=== PATIENT | female | born 1995 | race Two or more races ===

== ENCOUNTER 2016-11-17 03:43 | Outpatient (CLI) | payer MEDICAID ==
[2016-11-17 04:43] LABS: APPEARANCE,URINE CLEAR; BILIRUBIN,URINE NEGATIVE (NEGATIVE); GLUCOSE, URINE NEGATIVE (NEGATIVE); KETONES,URINE NEGATIVE (NEGATIVE); LEUKOCYTE ESTERASE,URINE NEGATIVE (NEGATIVE); NITRITE,URINE NEGATIVE (NEGATIVE); PROTEIN,URINE NEGATIVE (NEGATIVE); URINE SPECIFIC GRAVITY 1.027; UROBILINOGEN,URINE NEGATIVE mg/dL (<2.0)
[2016-11-17 04:44] LABS: AMNISURE (ROM) NEGATIVE (NEGATIVE)
[2016-11-17 05:25] LABS: URINE BARBITURATES SCREEN NEGATIVE; URINE METHADONE SCREEN NEGATIVE; URINE OPIATES LOW NEGATIVE; URINE PHENCYCLIDINE SCREEN NEGATIVE
--- NOTE | 2016-11-17 10:45 | Antepartum Discharge Summary ---
Antepartum DC Datetime Report Generated by CPN: 11/17/2016 10:45 DIET/ACTIVITY/RESTRICTIONS Diet: Regular (11/17/2016 05:45:Loli Ledgerwood, RN) Activity: Normal Activity (11/17/2016 05:45:Loli Ledgerwood, RN) TEACHING/INSTRUCTIONS/REFERRALS Instructions Given To: pt (11/17/2016 05:45:Loli Adamaris, RN) Instructions Understood: Patient Verbalized Understanding (11/17/2016 05:45:Loli Bailon RN) Referrals: None (11/17/2016 05:45:Loli Bailon RN) Educational Materials- Other: Kick Counts Dehydration (11/17/2016 05:45:Loli Bailon RN) DISCHARGE INFORMATION Discharged AMA: No (11/17/2016 05:45:Loli Bailon RN) Physician Notified of Disch AMA: Dr Leggett (11/17/2016 05:45:Loli Bailon RN) Discharge Date/Time: 11/17/2016 05:52 (11/17/2016 05:45:Loli Bailon RN) Discharged To: Home (11/17/2016 05:45:Loli Bailon RN) Discharge Provider Name: Dr Leggett (11/17/2016 05:45:Loli Bailon RN) Accompanied By: Self (11/17/2016 05:45:Loli Bailon RN) Discharge Method: Ambulatory (11/17/2016 05:45:Loli Bailon RN) Condition: Stable (11/17/2016 05:45:Loli Bailon RN) FOLLOW UP INFORMATION Follow Up With: Mihn (11/17/2016 05:45:Loli Bailon RN) Follow Up On: As Scheduled (11/17/2016 05:45:Loli Bailon RN) Follow Up Phone Number: Minh (11/17/2016 05:45:Loli Bailon RN) Comments: [facility] (11/17/2016 05:45:Loli Bailon RN)
--- NOTE | 2016-11-17 10:45 | L&D Current Admission ---
Current Admit Datetime Report Generated by N: 11/17/2016 10:45 ADMISSION INFORMATION Chief Complaint: Suspected Rupture of Membranes (Annotations: On the question what brought pt in today, she replied that she was "screaming for [address] because I had an argument with some one and I wanted to kill myself". RN asked pt. if pt. still feels like she wants to kill herself, pt. did not respond and began to cry.) (11/17/2016 04:26:Loli Bailon RN)
--- NOTE | 2016-11-17 10:45 | L&D Flow Sheet ---
LD Flowsheet Datetime Report Generated by CPN: 11/17/2016 10:45 Datetime: 11/17/2016 05:20 Communication Comments: Dr Leggett at the bedside asking the pt. if it is safe for her to go home and if she still wants to hurt herself. Pt replied that she is safe at home and she will not hurt herself. D/C order received. (Loli Ledgerwood, RN) Datetime: 11/17/2016 05:14 Communication Comments: Dr Leggett at the bedise (Loli Ledgerwood, RN) Datetime: 11/17/2016 05:05 Uterine Activity Monitor Mode: External; Palpation (Loli Ledgerwood, RN) Frequency (min): none (Loli Ledgerwood, RN) Resting Tone (Palpate): Relaxed (Loli Ledgerwood, RN) Assessment A Monitor Mode: External US (Loli Ledgerwood, RN) FHR Baseline Rate : 145 (Loli Ledgerwood, RN) FHR Baseline Changes: No Baseline Change (Loli Ledgerwood, RN) Variability: Moderate 6-25 bpm (Loli Ledgerwood, RN) Accelerations: 15X15 (Loli Ledgerwood, RN) Decelerations: None (Loli Ledgerwood, RN) Patient Care Patient Care Comments: monitors off (Loli Ledgerwood, RN) Datetime: 11/17/2016 05:04 Teaching Instructional Method: Demo; Verbal; Patient Instructed (Loli Ledgerwood, RN) Related: Hydration; Activity and Rest (Loli Ledgermandi, RN) Teaching Comments: Kick Count, Dehydration. (Lolinay Salazarwood, RN) Datetime: 11/17/2016 04:55 NBP Sys/Queenie/Mean (mmHg): 98 (QS system process) : 53 (QS system process) : 71 (QS system process) Pulse: 92 (QS system process) LaborFlag: Labor (QS system process) Datetime: 11/17/2016 04:46 Communication Comments: Dr. Leggett notified of patient's presence and c/o. Also informed of negative amnisure. (Sharla Mireles, RN) Datetime: 11/17/2016 04:45 Uterine Activity Monitor Mode: External; Palpation (Loli Ledgerwood, RN) Frequency (min): none (Loli Ledgerwood, RN) Resting Tone (Palpate): Relaxed (Loli Ledgerwood, RN) Contraction Comments: no contractions noted during palpetion, pt. reports no contractions. (Loli Ledgerwood, RN) Assessment A Monitor Mode: External US (Loli Ledgerwood, RN) FHR Baseline Rate : 145 (Loli Ledgerwood, RN) FHR Baseline Changes: No Baseline Change (Loli Ledgerwood, RN) Variability: Moderate 6-25 bpm (Loli Ledgerwood, RN) Accelerations: 10X10 (Loli Ledgerwood, RN) Decelerations: None (Loli Ledgerwood, RN) Datetime: 11/17/2016 04:26 Pain Pain Scale: 2 (Loli Ledgerwood, RN) Pain Presence: Constant (Loli Ledgerwood, RN) Pain Location: Back (Loli Ledgerwood, ) Maternal Assessment Level of Consciousness: Fully Conscious (Loli Ledgerwood, RN) DTR's/Clonus: DTRs 2+; No Clonus (Loli Ledgerwood, RN) Headache: Denies (Loli Ledgerwood, RN) Breath Sounds, Left: Clear and Equal (Loli Ledgerwood, RN) Breath Sounds, Right: Clear and Equal (Loli Ledgerwood, RN) Nausea/Vomiting: Denies (Loli Ledgerwood, RN) RUQ Epigastric Pain: Denies (Loli Bailon RN) Teaching Instructional Method: Demo; Verbal; Patient Instructed (Loli Bailon RN) Plan of Care: Plan of Care Discussed (Loli Bailon RN) Unit Routine: [place] to Room; Call Ahmadi; Bed; Handwashing; Monitoring; Safety/Fall Risk Prevention (Loli Bailon RN) Communication Communication: Provider Orders Received (Loli Bailon RN) Communication Comments: Dr Leggett on the floor. Dr Leggett was notified about pt's compaints , labs and FHRs. Order received to provide a psychological evaluation for the pt. (Loli Bailon RN) LaborFlag: Labor (QS system process) Datetime: 11/17/2016 04:25 NBP Sys/Queenie/Mean (mmHg): 98 (QS system process) : 61 (QS system process) : 74 (QS system process) Pulse: 98 (QS system process) Respirations: 14 (Loli Bailon RN) Communication Communication: RN at Bedside (Annotations: On the question what brought pt in today, she replied that, "I was screaming for [address] because I had an argument with someone and I wanted to kill myself". RN asked pt. if pt. still feels like she wants to kill herself, pt. did not respond and began to cry.) (Loli Bailon RN) LaborFlag: Labor (QS system process) Datetime: 11/17/2016 04:05 Vital Signs Stage of : Labor (Loli Bailon, KING)
--- NOTE | 2016-11-17 10:45 | L&D Discharge Summary ---
OB Discharge Summary Datetime Report Generated by CPN: 11/17/2016 10:45 DISCHARGE DIAGNOSIS Diagnosis/Symptoms: False Labor Number of Babies in Womb: 1 Parity: 0 DIET/ACTIVITY/RESTRICTIONS Diet: Regular Activity: Normal Activity TEACHING/INSTRUCTIONS/REFERRALS Instructions Given To: pt Instructions Understood: Patient Verbalized Understanding Referrals: None Educational Materials- Other: Kick Counts Dehydration DISCHARGE INFORMATION Discharged AMA: No Physician Notified of Disch AMA: Dr Leggett Discharge Date/Time: 11/17/2016 05:52 Discharged To: Home Discharge Provider Name: Dr Leggett Accompanied By: Self Discharge Method: Ambulatory Condition: Stable FOLLOW UP INFORMATION Follow Up With: Other-Annotate Follow Up On: As Scheduled Follow Up Phone Number: Other-Annotate Comments: [facility]
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
--- NOTE | 2016-11-17 10:45 | L&D Admission Assessment ---
LD ADM ASMT Datetime Report Generated by CPN: 11/17/2016 10:45 PATIENT ASSESSMENT Assessment Type: Triage (11/17/2016 04:26:Loli Ledgerwood, RN) Assessment Type: Admission Assessment (11/17/2016 04:05:Loli Ledgerwood, RN) WEIGHT Weight (lb): 136 (11/17/2016 05:54:QS system process) Weight (kg): 61.8 (11/17/2016 05:54:QS system process) BMI: 26.6 (11/17/2016 05:54:QS system process) PAIN Pain Scale: 2 (11/17/2016 04:26:Loli Bailon RN) Pain Presence: Constant (11/17/2016 04:26:Loli Bailon RN) Pain Location: Back (11/17/2016 04:26:Loli Bailon RN) Pain Related to Contraction: No (11/17/2016 04:26:Loli Bailon RN) CONTRACTIONS Frequency (min): none (11/17/2016 05:05:Loli Bailon RN) Frequency (min): none (11/17/2016 04:45:Loli Bailon RN) Resting Tone [place]: Relaxed (11/17/2016 05:05:Loli Bailon RN) Resting Tone [place]: Relaxed (11/17/2016 04:45:Loli Bailon RN) Contraction Comments: no contractions noted during palpetion, pt. reports no contractions. (11/17/2016 04:45:Loli Ledgerwood, RN) NEURO Level of Consciousness: Fully Conscious (11/17/2016 04:26:Loli Adamaris, RN) DTR's/Clonus: DTRs 2+; No Clonus (11/17/2016 04:26:Lolinay Bailon, RN) Headache: Denies (11/17/2016 04:26:Loli Corrinagermandi, RN) Dizziness: No (11/17/2016 04:26:Lolinay Housergermandi, RN) Blurred Vision: No (11/17/2016 04:26:Loli Ledgerwood, RN) Extremity Numbness/Tingling : None (11/17/2016 04:26:Loli Ledgerwood, RN) Extremity Movement: Full Range of Motion (11/17/2016 04:26:Lolinay Housergermandi, RN) CARDIOVASCULAR Nailbeds: Fernando Salinas (11/17/2016 04:26:Lolinay Bailon, RN) Capillary Refill: Less than 3 Seconds (11/17/2016 04:26:Lolinay Bailon, RN) Facial Edema: None (11/17/2016 04:26:Lolinay Housergermandi, RN) Blanche's Sign Left Leg: Negative (11/17/2016 04:26:Lolinay Housergermandi, RN) Blanche's Sign Right Leg: Negative (11/17/2016 04:26:Lolinay Housergermandi, RN) RESPIRATORY Respiratory Effort: Unlabored; Regular Rhythm; Equal Expansion (11/17/2016 04:26:Loli Bailon, KING) Breath Sounds, Left: Clear and Equal (11/17/2016 04:26:Loli Bailon, RN) Breath Sounds, Right: Clear and Equal (11/17/2016 04:26:Loli Bailon, RN) Cough Productivity: None (11/17/2016 04:26:Loli Bailon, RN) GASTROINTESTINAL Nausea/Vomiting: Denies (11/17/2016 04:26:Loli Bailon RN) Bowel Sounds: Normoactive; All Quadrants (11/17/2016 04:26:Loli Bailon RN) RUQ Epigastric Pain: Denies (11/17/2016 04:26:Loli Bailon RN) Bowel Patterns: Soft, Formed Stool (11/17/2016 04:26:Loli Bailon RN) Hemorrhoids: None (11/17/2016 04:26:Loli Bailon RN) Diet Type: Regular diet (11/17/2016 04:26:Loli Bailon RN) Last Meal: 11/16/2016 22:00 (11/17/2016 04:26:Loli Bailon RN) GENITOURINARY Bladder: Nondistended (11/17/2016 04:26:Loli Bailon RN) Frequency of Urination: No (11/17/2016 04:26:Loli Bailon RN) Urination Burning: No (11/17/2016 04:26:Loli Bailon RN) CVA Tenderness: No (11/17/2016 04:26:Loli Bailon RN) Vaginal Bleeding: None (11/17/2016 04:26:Loli Bailon RN) Vaginal Discharge Color: N/A (11/17/2016 04:26:Loli Bailon RN) INTEGUMENTARY Skin Color: Normal for Race (11/17/2016 04:26:Loli Bailon RN) Skin Temperature: Warm (11/17/2016 04:26:Loli Bailon RN) Skin Moisture: Dry (11/17/2016 04:26:Loli Bailon RN) LUZ SKIN ASSESSMENT Luz Scale Sensory Perception: No Impairment- Responds to verbal commands. Has no sensory deficit which would limit ability to feel or voice pain or discomfort (11/17/2016 04:26:Loli Bailon RN) Luz Scale Moisture: Rarely Moist- Skin is usually dry. Linen only requires changing at routine intervals (11/17/2016 04:26:Loli Bailon RN) Luz Scale Activity: Walks Frequently- Walks outside the room at least twice a day and inside room at least every 2 hours during the day. (11/17/2016 04:26:Loli Bailon RN) Luz Scale Mobility: No Limitations- Makes major and frequent changes in position without assistance (11/17/2016 04:26:Loli Bailon RN) Luz Scale Nutrition: Excellent- Eats most of every meal. Never refuses a meal. Usually eats a total of 4 or more servings of meat and dairy products. Occasionally eats between meals. Does not require supplementation (11/17/2016 04:26:Loli Bailon RN) Luz Scale Friction and Shear: No Apparent Problem- Moves in bed and in chair independently and has sufficient muscle strength to lift up completely during move. Maintains good position in bed or chair at all times (11/17/2016 04:26:Loli Bailon RN) Luz Scale Total: 23 (11/17/2016 04:26:QS system process) Luz Scale Risk: No Risk of Pressure Ulcer Noted at this Time (11/17/2016 04:26:QS system process) SUPPORT Emotional State: Anxious (11/17/2016 04:26:Loli Bailon, RN) SAFETY Call Ahmadi Within Reach: Yes (11/17/2016 04:26:Loli Bailon RN) Side Rails Up: Yes (11/17/2016 04:26:Loli Bailon RN) Bed Wheels Locked: Yes (11/17/2016 04:26:Loli Bailon RN) Arm Bands Present: Yes (11/17/2016 04:26:Loli Bailon RN) FALL SCREEN Fall Risk History of Falling: (0) No (11/17/2016 04:26:Loli Bailon RN) Fall Risk Secondary Diagnosis: (0) No (11/17/2016 04:26:Loli Bailon RN) Fall Risk Ambulatory Aid: (0) None/Bedrest/Wheelchair/Nurse Assist (11/17/2016 04:26:Loli Bailon RN) Fall Risk IV Therapy: (0) No (11/17/2016 04:26:Loli Bailon RN) Fall Risk Gait: (0) Normal/Bedrest/Immobile (11/17/2016 04:26:Loli Bailon RN) Fall Risk Mental Status: (0) Oriented to Own Ability (11/17/2016 04:26:Loli Bailon RN) Fall Risk Score: 0 (11/17/2016 04:26:QS system process) Fall Risk Score Definition: No Risk: No action required (11/17/2016 04:26:QS system process) RECENT TRAVEL/INFECTIOUS DISEASE Pt/Family Education: Handwashing Hygiene (11/17/2016 04:26:Loli Bailon RN) BABY A FHR Baseline Rate (bpm) Baby A: 145 (11/17/2016 05:05:Loli Bailon RN) FHR Baseline Rate (bpm) Baby A: 145 (11/17/2016 04:45:Loli Bailon RN) Variability Baby A: Moderate 6-25 bpm (11/17/2016 05:05:Loli Bailon RN) Variability Baby A: Moderate 6-25 bpm (11/17/2016 04:45:Loli Bailon RN) Accelerations Baby A: 15X15 (11/17/2016 05:05:Loli Bailon RN) Accelerations Baby A: 10X10 (11/17/2016 04:45:Loli Bailon RN) Decelerations Baby A: None (11/17/2016 05:05:Loli Bailon RN) Decelerations Baby A: None (11/17/2016 04:45:Loli Bailon RN) ADDITIONAL COMMENTS Assessment Flag: Admission Assessment (11/17/2016 04:05:QS system process)
== END 2016-11-17 05:52 | disposition home or self-care (01) ==
LOC: LC 03:43
PROVIDERS: ATTEND Obstetrics & Gynecology
PROC: 4A1HXCZ Monitoring of Products of Conception, Cardiac Rate, External Approach (ICD-10-PCS; principal; 2016-11-17)
DX: O47.03 False labor before 37 completed weeks of gestation, third trimester (principal); Z3A.29 29 weeks gestation of pregnancy
CPT/HCPCS: 80307; 81001; 84112

== ENCOUNTER 2016-12-01 23:18 | Outpatient (CLI) | payer MEDICAID ==
[2016-12-02 00:05] LABS: APPEARANCE,URINE SLIGHTLY-CLOUDY; BILIRUBIN,URINE NEGATIVE (NEGATIVE); GLUCOSE, URINE NEGATIVE (NEGATIVE); KETONES,URINE NEGATIVE (NEGATIVE); LEUKOCYTE ESTERASE,URINE NEGATIVE (NEGATIVE); NITRITE,URINE NEGATIVE (NEGATIVE); PROTEIN,URINE NEGATIVE (NEGATIVE); URINE SPECIFIC GRAVITY 1.006; UROBILINOGEN,URINE NEGATIVE mg/dL (<2.0)
[2016-12-02 00:21] LABS: URINE BARBITURATES SCREEN NEGATIVE; URINE METHADONE SCREEN NEGATIVE; URINE OPIATES LOW NEGATIVE; URINE PHENCYCLIDINE SCREEN NEGATIVE
--- NOTE | 2016-12-02 04:46 | L&D Flow Sheet ---
LD Flowsheet Datetime Report Generated by CPN: 12/02/2016 04:45 Datetime: 12/02/2016 00:40 Additional Nursing Comments: Pt stable, ambulatory, discharged from unit (Megan Anca, RN) Datetime: 12/02/2016 00:35 Teaching Teaching Comments: labor precautions given and explained. Pt questions about vaginal , c/s and HSV answered. (Megan Anca, RN) Datetime: 12/02/2016 00:29 Uterine Activity Monitor Mode: External (Megan Anca, RN) Frequency (min): x1; irritability (Megan Anca, RN) Quality: Mild (Megan Anca, RN) Duration (sec): 90 (Megan Anca, RN) Resting Tone (Palpate): Relaxed (Megan Anca, RN) Assessment A Monitor Mode: External US (Megan Anca, RN) FHR Baseline Rate : 145 (Megan Anca, RN) Variability: Moderate 6-25 bpm (Megan Anca, RN) Accelerations: 15X15 (Megan Anca, RN) Decelerations: None (Megan Anca, RN) Datetime: 12/02/2016 00:12 Patient Care Provider Reviewed Strip: Yes (Megan Anca, RN) Communication Communication: Provider Orders Received (Megan Anca, RN) Communication Comments: Dr Pierre on unit, d/c orders received (Megan Anca, RN) Datetime: 12/02/2016 00:03 Monitor Interventions for UA: [place] Adjusted (Megan Anca, RN) Datetime: 12/02/2016 00:00 Uterine Activity Monitor Mode: External; Palpation (Megan Anca, RN) Frequency (min): Irritability (Megan Anca, RN) Quality: Mild (Megan Anca, RN) Duration (sec): 30-40 (Megan Anca, RN) Resting Tone (Palpate): Relaxed (Megan Anca, RN) Assessment A Monitor Mode: External US (Megan Anca, RN) FHR Baseline Rate : 145 (Megan Anca, RN) Variability: Moderate 6-25 bpm (Megan Anca, RN) Accelerations: 15X15 (Megan Anca, RN) Decelerations: None (Megan Anca, RN) Datetime: 12/01/2016 23:45 Pain Pain Scale: 3 (Megan Anca, RN) Pain Presence: Intermittent (Megan Anca, RN) Pain Type: Sharp; Ache (Megan Anca, RN) Pain Location: Abdomen; Back (Megan Anca, RN) Pain Goal: 1 (Megan Anca, RN) Pain Coping: Breathing (Megan Anca, RN) Membrane Status: Intact (Megan Anca, RN) Vaginal Bleeding: None (Megan Anca, RN) Maternal Assessment Level of Consciousness: Fully Conscious (Megan Anca, RN) DTR's/Clonus: DTRs 2+; No Clonus (Megan Anca, RN) Headache: Denies (Megan Anca, RN) Breath Sounds, Left: Clear and Equal (Megan Anca, RN) Breath Sounds, Right: Clear and Equal (Megan Anca, RN) Nausea/Vomiting: Denies (Megan Anca, RN) RUQ Epigastric Pain: Denies (Megan Anca, RN) LaborFlag: Antepartum (QS system process) Datetime: 12/01/2016 23:44 Vaginal Exam Dilatation (cm): 0.0 (Megan March RN) Effacement (%): 0 (Megan March RN) Station: -3 (Megan March RN) Exam by: Silas March RN (Megan March RN) Vaginal Bleeding: None (Megan March RN) Cervix, Consistency: Firm (Megan March RN) Cervix, Position: Posterior (Megan March RN) Datetime: 12/01/2016 23:42 NBP Sys/Queenie/Mean (mmHg): 107 (QS system process) : 55 (QS system process) : 73 (QS system process) Pulse: 91 (QS system process) Pulse: 86 (QS system process) Respirations: 32 (Megan Anca, RN) SpO2 (%): 100 (QS system process) Temperature (F): 97.4 (Megan Anca, RN) Temperature (C): 36.3 (QS system process) Temperature Route: Oral (Megan Anca, RN) LaborFlag: Antepartum (QS system process) Datetime: 12/01/2016 23:39 Vital Signs Stage of : Antepartum (Megan Anca, RN)
--- NOTE | 2016-12-02 04:46 | L&D Admission Assessment ---
LD ADM ASMT Datetime Report Generated by CPN: 12/02/2016 04:45 PATIENT ASSESSMENT Assessment Type: Admission Assessment (12/01/2016 23:45:Megan March RN) PAIN Pain Scale: 3 (12/01/2016 23:45:Megan March RN) Pain Presence: Intermittent (12/01/2016 23:45:Megan March RN) Pain Type: Sharp; Ache (12/01/2016 23:45:Megan Anca, RN) Pain Location: Abdomen; Back (12/01/2016 23:45:Megan Anca, RN) Pain Goal: 1 (12/01/2016 23:45:Megan Anca, RN) Pain Related to Contraction: Unsure (12/01/2016 23:45:Megan Anca, RN) CONTRACTIONS Frequency (min): x1; irritability (12/02/2016 00:29:Megan Anca, RN) Frequency (min): Irritability (12/02/2016 00:00:Megan Anca, RN) Duration (sec): 90 (12/02/2016 00:29:Megan Anca, RN) Duration (sec): 30-40 (12/02/2016 00:00:Megan Anca, RN) Quality: Mild (12/02/2016 00:29:Megan Anca, RN) Quality: Mild (12/02/2016 00:00:Megan Anca, RN) Resting Tone [place]: Relaxed (12/02/2016 00:29:Megan Anca, RN) Resting Tone [place]: Relaxed (12/02/2016 00:00:Megan Anca, RN) VAGINAL EXAM Dilatation (cm): 0.0 (12/01/2016 23:44:Megan Anca, RN) Effacement (%): 0 (12/01/2016 23:44:Megan Anca, RN) Station: -3 (12/01/2016 23:44:Megan Anca, RN) Membranes Status: Intact (12/01/2016 23:45:Megan Anca, RN) NEURO Level of Consciousness: Fully Conscious (12/01/2016 23:45:Megan Anca, RN) DTR's/Clonus: DTRs 2+; No Clonus (12/01/2016 23:45:Megan Anca, RN) Headache: Denies (12/01/2016 23:45:Megan Anca, RN) Dizziness: No (12/01/2016 23:45:Megan Anca, RN) Blurred Vision: No (12/01/2016 23:45:Megan Anca, RN) Extremity Numbness/Tingling : None (12/01/2016 23:45:Megan Anca, RN) Extremity Movement: Full Range of Motion (12/01/2016 23:45:Megan Anca, RN) CARDIOVASCULAR Nailbeds: [place] (12/01/2016 23:45:Megan March RN) Capillary Refill: Less than 3 Seconds (12/01/2016 23:45:Megan March RN) Lower Extremities Edema: None (12/01/2016 23:45:Megan March RN) Lower Extremities Edema Degree: None (12/01/2016 23:45:Megan March RN) Upper Extremities Edema: None (12/01/2016 23:45:Megan March RN) Upper Extremities Edema Degree: None (12/01/2016 23:45:Megan March RN) Facial Edema: None (12/01/2016 23:45:Megan March RN) Blanche's Sign Left Leg: Negative (12/01/2016 23:45:Megan March RN) Blanche's Sign Right Leg: Negative (12/01/2016 23:45:Megan March RN) DVT RISK ASSESSMENT DVT Risk Age: Age less than 41 years (12/01/2016 23:45:Megan March RN) DVT Risk BMI: BMI<31 (12/01/2016 23:45:Megan March RN) DVT Risk Surgery: None Applicable (12/01/2016 23:45:Megan March RN) DVT Risk Other: Women Only- or (<1 month) (12/01/2016 23:45:Megan March RN) DVT Risk Total: 1 (12/01/2016 23:45:QS system process) DVT Risk Text: Low Risk (<10%) No specific measures, early ambulation (12/01/2016 23:45:QS system process) RESPIRATORY Respiratory Effort: Unlabored; Regular Rhythm; Equal Expansion (12/01/2016 23:45:Megan March RN) Breath Sounds, Left: Clear and Equal (12/01/2016 23:45:Megan March RN) Breath Sounds, Right: Clear and Equal (12/01/2016 23:45:Megan March RN) Cough Productivity: None (12/01/2016 23:45:Megan March RN) GASTROINTESTINAL Nausea/Vomiting: Denies (12/01/2016 23:45:Megan March RN) Bowel Sounds: Normoactive; All Quadrants (12/01/2016 23:45:Megan March RN) RUQ Epigastric Pain: Denies (12/01/2016 23:45:Megan March RN) Bowel Patterns: Soft, Formed Stool (12/01/2016 23:45:Megan March RN) Hemorrhoids: None (12/01/2016 23:45:Megan March RN) Diet Type: Regular diet (12/01/2016 23:45:Megan March RN) Last Meal: 12/01/2016 20:00 (12/01/2016 23:45:Megan March RN) GENITOURINARY Bladder: Nondistended (12/01/2016 23:45:Megan March RN) Frequency of Urination: No (12/01/2016 23:45:Megan March RN) Urination Burning: No (12/01/2016 23:45:Megan March RN) CVA Tenderness: No (12/01/2016 23:45:Megan March, RN) Vaginal Bleeding: None (12/01/2016 23:45:Megan March RN) Vaginal Discharge Color: N/A (12/01/2016 23:45:Megan March RN) INTEGUMENTARY Skin Color: Normal for Race (12/01/2016 23:45:Megan March RN) Skin Temperature: Warm (12/01/2016 23:45:Megan March RN) Skin Moisture: Dry (12/01/2016 23:45:Megan March RN) LUZ SKIN ASSESSMENT Luz Scale Sensory Perception: No Impairment- Responds to verbal commands. Has no sensory deficit which would limit ability to feel or voice pain or discomfort (12/01/2016 23:45:Megan March RN) Luz Scale Moisture: Rarely Moist- Skin is usually dry. Linen only requires changing at routine intervals (12/01/2016 23:45:Megan March RN) Luz Scale Activity: Walks Frequently- Walks outside the room at least twice a day and inside room at least every 2 hours during the day. (12/01/2016 23:45:Megan March RN) Luz Scale Mobility: No Limitations- Makes major and frequent changes in position without assistance (12/01/2016 23:45:Megan March RN) Luz Scale Nutrition: Excellent- Eats most of every meal. Never refuses a meal. Usually eats a total of 4 or more servings of meat and dairy products. Occasionally eats between meals. Does not require supplementation (12/01/2016 23:45:Megan March RN) Luz Scale Friction and Shear: No Apparent Problem- Moves in bed and in chair independently and has sufficient muscle strength to lift up completely during move. Maintains good position in bed or chair at all times (12/01/2016 23:45:Megan March RN) Luz Scale Total: 23 (12/01/2016 23:45:QS system process) Luz Scale Risk: No Risk of Pressure Ulcer Noted at this Time (12/01/2016 23:45:QS system process) SUPPORT Family Support: Significant Other supportive, at bedside frequently (12/01/2016 23:45:Megan March RN) SAFETY Call Ahmadi Within Reach: Yes (12/01/2016 23:45:Megan March RN) Side Rails Up: Yes (12/01/2016 23:45:Megan March RN) Bed Wheels Locked: Yes (12/01/2016 23:45:Megan March RN) Arm Bands Present: Yes (12/01/2016 23:45:Megan March RN) FALL SCREEN Fall Risk History of Falling: (0) No (12/01/2016 23:45:Megan March RN) Fall Risk Secondary Diagnosis: (0) No (12/01/2016 23:45:Megan March RN) Fall Risk Ambulatory Aid: (0) None/Bedrest/Wheelchair/Nurse Assist (12/01/2016 23:45:Megan March RN) Fall Risk IV Therapy: (0) No (12/01/2016 23:45:Megan March RN) Fall Risk Gait: (0) Normal/Bedrest/Immobile (12/01/2016 23:45:Megan March RN) Fall Risk Mental Status: (0) Oriented to Own Ability (12/01/2016 23:45:Megan March RN) Fall Risk Score: 0 (12/01/2016 23:45:QS system process) Fall Risk Score Definition: No Risk: No action required (12/01/2016 23:45:QS system process) BABY A FHR Baseline Rate (bpm) Baby A: 145 (12/02/2016 00:29:Megan Anca, RN) FHR Baseline Rate (bpm) Baby A: 145 (12/02/2016 00:00:Megan Anca, RN) Variability Baby A: Moderate 6-25 bpm (12/02/2016 00:29:Megan Anca, RN) Variability Baby A: Moderate 6-25 bpm (12/02/2016 00:00:Megan Anca, RN) Accelerations Baby A: 15X15 (12/02/2016 00:29:Megan Anca, RN) Accelerations Baby A: 15X15 (12/02/2016 00:00:Megan Anca, RN) Decelerations Baby A: None (12/02/2016 00:29:Megan Anca, RN) Decelerations Baby A: None (12/02/2016 00:00:Megan Anca, RN) ADDITIONAL COMMENTS Assessment Flag: Admission Assessment (12/01/2016 23:45:QS system process)
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
--- NOTE | 2016-12-02 04:46 | L&D Discharge Summary ---
OB Discharge Summary Datetime Report Generated by CPN: 12/02/2016 04:45 DISCHARGE DIAGNOSIS Diagnosis/Symptoms: False Labor Gestation: 32.0 Number of Babies in Womb: 1 Parity: 0 DIET/ACTIVITY/RESTRICTIONS Diet: Regular Activity: Normal Activity TEACHING/INSTRUCTIONS/REFERRALS Instructions Given To: pt Instructions Understood: Patient Verbalized Understanding Referrals: None Educational Materials- Other: Kick Counts Dehydration DISCHARGE INFORMATION Discharged AMA: No Physician Notified of Disch AMA: Dr Leggett Discharge Date/Time: 11/17/2016 05:52 Discharged To: Home Discharge Provider Name: Leggett Accompanied By: Self Discharge Method: Ambulatory Condition: Stable FOLLOW UP INFORMATION Follow Up With: Other-Annotate Follow Up On: As Scheduled Follow Up Phone Number: Other-Annotate Comments: [facility]
--- NOTE | 2016-12-02 04:46 | L&D Current Admission ---
Current Admit Datetime Report Generated by CPN: 12/02/2016 04:45 ADMISSION INFORMATION Chief Complaint: Contractions (12/01/2016 23:45:Megan March RN) Chief Complaint: Suspected Rupture of Membranes (Annotations: On the question what brought pt in today, she replied that she was "screaming for [address] I had an argument with some one and I wanted to kill myself". RN asked pt. if pt. still feels like she wants to kill herself, pt. did not respond and began to cry.) (11/17/2016 04:26:Loli Bailon RN)
== END 2016-12-02 00:40 | disposition home or self-care (01) ==
LOC: LC 23:18
PROVIDERS: ATTEND Obstetrics & Gynecology
PROC: 4A1HXCZ Monitoring of Products of Conception, Cardiac Rate, External Approach (ICD-10-PCS; principal; 2016-12-01)
DX: O47.03 False labor before 37 completed weeks of gestation, third trimester (principal); Z3A.32 32 weeks gestation of pregnancy
CPT/HCPCS: 80307; 81005

== ENCOUNTER 2017-01-12 02:39 | Outpatient (CLI) | payer MEDICAID ==
[2017-01-12 03:24] LABS: APPEARANCE,URINE CLEAR; BILIRUBIN,URINE NEGATIVE (NEGATIVE); GLUCOSE, URINE NEGATIVE (NEGATIVE); KETONES,URINE NEGATIVE (NEGATIVE); LEUKOCYTE ESTERASE,URINE NEGATIVE (NEGATIVE); NITRITE,URINE NEGATIVE (NEGATIVE); PROTEIN,URINE NEGATIVE (NEGATIVE); URINE SPECIFIC GRAVITY 1.002; UROBILINOGEN,URINE NEGATIVE mg/dL (<2.0)
[2017-01-12 03:39] LABS: URINE BARBITURATES SCREEN NEGATIVE; URINE METHADONE SCREEN NEGATIVE; URINE OPIATES LOW NEGATIVE; URINE PHENCYCLIDINE SCREEN NEGATIVE
== END 2017-01-12 04:01 | disposition home or self-care (01) ==
LOC: LC 02:39
PROVIDERS: ATTEND Obstetrics & Gynecology
PROC: 4A1HXCZ Monitoring of Products of Conception, Cardiac Rate, External Approach (ICD-10-PCS; principal; 2017-01-12)
DX: O47.1 False labor at or after 37 completed weeks of gestation (principal); Z3A.38 38 weeks gestation of pregnancy
CPT/HCPCS: 59025; 80307; 81005

== ENCOUNTER 2017-02-01 20:23 | Emergency (ER) | payer MEDICAID ==
[2017-02-01 21:52] VITALS: BP 116/70
[2017-02-01 22:26] LABS: ABSOLUTE EOSINOPHILS # (AUTO) 0.2 10^3/uL (0.0-0.6); ABSOLUTE LYMPHOCYTES (AUTO) 2.1 10^3/uL (0.5-4.7); ABSOLUTE MONOCYTES (AUTO) 0.3 10^3/uL (0.1-1.4); ABSOLUTE NEUT (AUTO) 3.2 10^3/uL (1.7-8.2); BASOPHILS % (AUTO) 0.8 % (0-2); EOSINOPHILS % (AUTO) 3.3 % (0-6); HEMATOCRIT 37.2 % (36.0-47.0); HEMOGLOBIN 11.9 g/dL (12.0-15.5); HGB HCT DIFFERENCE -1.5; LYMPHOCYTES % (AUTO) 36.2 % (13-45); MEAN CORPUSCULAR HEMOGLOBIN 24.7 pg (27.0-33.4); MEAN CORPUSCULAR HGB CONC 32.1 g/dL (32.0-36.0); MEAN CORPUSCULAR VOLUME 77 fl (80-97); MONOCYTES % (AUTO) 5.2 % (3-13); RED BLOOD COUNT 4.83 10^6/uL (3.72-5.28); RED CELL DISTRIBUTION WIDTH 21.1 % (11.5-14.0); SEGMENTED NEUTROPHILS % (AUTO) 54.5 % (42-78); WHITE BLOOD COUNT 5.9 10^3/uL (4.0-10.5)
== END 2017-02-01 23:00 | disposition left against medical advice (07) ==
LOC: ER 20:23
DX: Z53.21 Procedure and treatment not carried out due to patient leaving prior to being seen by health care provider (principal)
CPT/HCPCS: 36415; 85025

== ENCOUNTER 2017-02-21 17:28 | Emergency (ER) | payer MEDICAID ==
--- NOTE | 2017-02-21 18:44 | ER Document Report ---
ED Medical Screen (RME) - General TRAVEL OUTSIDE OF THE [place] IN LAST 30 DAYS: No - General Chief Complaint: Vaginal Bleeding Stated Complaint: VAGINAL BLEEDING,ABDOMINAL PAIN Time Seen by Provider: 02/21/17 18:32 Notes: 22-year-old female status post one month ago presents with vaginal bleeding. She had been lifting her baby and a stroller and noted a large gush of blood. Since slowed down. She had fairly severe suprapubic cramping with this. She has not had any recent bleeding other than today. She also feels soreness at her incision but has not dehiscence or infection. Dysuria or hematuria. Missed her follow-up [employer] visit. ( JAMIE SINGH) I have greeted and performed a rapid initial assessment of this patient. A comprehensive ED assessment and evaluation of the patient, analysis of test results and completion of the medical decision making process will be conducted by additional ED providers. (ELKIN HAYES) - Related Data Allergies/Adverse Reactions: ethinyl estradiol [From Lutera (28)] Allergy (Verified 02/21/17 18:33) haloperidol [From Haldol] Allergy (Verified 02/21/17 18:33) haloperidol lactate [From Haldol] Allergy (Verified 02/21/17 18:33) levonorgestrel [From Lutera (28)] Allergy (Verified 02/21/17 18:33) lithium [[place]] Allergy (Verified 02/21/17 18:33) Past Medical History Pulmonary Medical History: Reports: Hx Asthma - childhood Renal/ Medical History: Reports: Hx Ovarian Cysts. Denies: Hx Peritoneal Dialysis GI Medical History: Reports: Hx Irritable Bowel Skin Medical History: Reports Hx Eczema Psychiatric Medical History: Reports: Hx Anxiety, Hx Bipolar Disorder Past Surgical History: Reports: Hx Gynecologic Surgery - D&C, Hx Oral Surgery - Immunizations Immunizations up to date: Yes Hx Diphtheria, Pertussis, Tetanus Vaccination: Yes - <4 years Physical Exam - Vital signs Vitals: Temp Pulse Resp BP Pulse Ox 97.7 F 85 18 117/57 L 100 02/21/17 17:46 02/21/17 17:46 02/21/17 17:46 02/21/17 17:46 02/21/17 17:46 - Notes Notes: On brief exam, lungs are clear to auscultation and heart is regular rate and rhythm (JAMIE SINGH)
[2017-02-21 19:39] LABS: ABSOLUTE EOSINOPHILS # (AUTO) 0.2 10^3/uL (0.0-0.6); ABSOLUTE LYMPHOCYTES (AUTO) 1.8 10^3/uL (0.5-4.7); ABSOLUTE MONOCYTES (AUTO) 0.6 10^3/uL (0.1-1.4); ABSOLUTE NEUT (AUTO) 5.1 10^3/uL (1.7-8.2); BASOPHILS % (AUTO) 0.2 % (0-2); EOSINOPHILS % (AUTO) 2.3 % (0-6); HEMATOCRIT 38.1 % (36.0-47.0); HGB HCT DIFFERENCE -2.1; LYMPHOCYTES % (AUTO) 23.4 % (13-45); MEAN CORPUSCULAR HEMOGLOBIN 24.8 pg (27.0-33.4); MEAN CORPUSCULAR HGB CONC 31.5 g/dL (32.0-36.0); MEAN CORPUSCULAR VOLUME 79 fl (80-97); MONOCYTES % (AUTO) 7.9 % (3-13); RED BLOOD COUNT 4.85 10^6/uL (3.72-5.28); RED CELL DISTRIBUTION WIDTH 22.4 % (11.5-14.0); SEGMENTED NEUTROPHILS % (AUTO) 66.2 % (42-78); WHITE BLOOD COUNT 7.7 10^3/uL (4.0-10.5)
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
[2017-02-21 21:15] LABS: APPEARANCE,URINE SLIGHTLY-CLOUDY; BILIRUBIN,URINE NEGATIVE (NEGATIVE); GLUCOSE, URINE NEGATIVE (NEGATIVE); KETONES,URINE NEGATIVE (NEGATIVE); LEUKOCYTE ESTERASE,URINE MODERATE (NEGATIVE); NITRITE,URINE NEGATIVE (NEGATIVE); PROTEIN,URINE NEGATIVE (NEGATIVE); URINE SPECIFIC GRAVITY 1.016; UROBILINOGEN,URINE NEGATIVE mg/dL (<2.0)
[2017-02-21] MEDS ORDERED: IBUPROFEN 800 MG TABLET PO ONE (22:32)
[2017-02-21 22:40] LABS: CHLAM PCR NOT DETECTED (NOT DETECT)
--- NOTE | 2017-02-21 23:37 | RADIOLOGY REPORT (SQ) ---
EXAM DESCRIPTION: U/S NON OB PEL TV W/DOPPLER COMPLETED DATE/TIME: 02/21/2017 11:22 pm REASON FOR STUDY: left pelvic pain COMPARISON: 06/26/2015 TECHNIQUE: Dynamic and static grayscale images acquired of the pelvis via transvaginal approach and recorded on PACS. Additional selected color Doppler and spectral images recorded. LIMITATIONS: None. FINDINGS: UTERUS: Contour normal. No mass. ENDOMETRIAL STRIPE: There is a trace amount of free fluid in the endometrial canal. CERVIX: No nabothian cysts. RIGHT OVARY: No abnormal masses. RIGHT OVARY DOPPLER: Normal arterial vascular flow without evidence for torsion. LEFT OVARY: No abnormal masses. LEFT OVARY DOPPLER: Normal arterial vascular flow without evidence for torsion. FREE FLUID: There is a trace amount of free fluid in the cul-de-sac. OTHER: No other significant finding. MEASUREMENTS: UTERUS: 8.9 x 6.7 x 5.1 cm. ENDOMETRIAL STRIPE: 11.0 mm. RIGHT OVARY: 4.4 x 3.2 x 2.9 cm. LEFT OVARY: 2.8 x 2.3 x 2.1 cm. IMPRESSION: Trace amount of free fluid in the cul-de-sac no other significant findings. TECHNICAL DOCUMENTATION: JOB ID: [id number] [employer]- All Rights Reserved
[2017-02-21] MEDS ORDERED: CLINDAMYCIN HCL 150 MG CAPSULE PO ONE (23:47)
[2017-02-22 00:01] VITALS: BP 127/71
== END 2017-02-21 23:57 | disposition home or self-care (01) ==
LOC: ER 17:28
DX: N76.0 Acute vaginitis (principal); R10.2 Pelvic and perineal pain; N93.9 Abnormal uterine and vaginal bleeding, unspecified; R10.9 Unspecified abdominal pain
CPT/HCPCS: 36415; 76830; 81001; 81025; 85025; 87086; 87210; 87491; 87591; 93976; 99284

== ENCOUNTER 2017-03-04 19:31 | Emergency (ER) | payer MEDICAID ==
--- NOTE | 2017-03-04 20:32 | ER Document Report ---
ED GI/ - General Chief Complaint: Vaginal Discharge Stated Complaint: CRAMPS/VAGINAL DISCHARGE SINCE SURGERY Time Seen by Provider: 03/04/17 20:21 Notes: Patient is a 22-year-old female that comes emergency department for chief complaint of vaginal discharge, she has had this worse for the past 4 days, she was recently evaluated and placed on clindamycin for bacterial vaginosis. She denies fever, nausea vomiting, she states she has vaginal irritation but denies abdominal pain, denies vaginal bleeding. She had a about 6 weeks ago, she is breast feeding. TRAVEL OUTSIDE OF THE [place] IN LAST 30 DAYS: No - Related Data Allergies/Adverse Reactions: ethinyl estradiol [From Lutera (28)] Allergy (Verified 02/21/17 18:33) haloperidol [From Haldol] Allergy (Verified 02/21/17 18:33) haloperidol lactate [From Haldol] Allergy (Verified 02/21/17 18:33) levonorgestrel [From Lutera (28)] Allergy (Verified 02/21/17 18:33) lithium [[place]] Allergy (Verified 02/21/17 18:33) Past Medical History - General Information source: Patient - Social History Smoking Status: Never Smoker Frequency of alcohol use: None Drug Abuse: None Lives with: Family Family History: Reviewed & Not Pertinent, Arthritis, CAD, DM, Hypertension, Other - Long family history of anxiety. Patient has suicidal ideation: No Patient has homicidal ideation: No Pulmonary Medical History: Reports: Hx Asthma - childhood Renal/ Medical History: Reports: Hx Ovarian Cysts. Denies: Hx Peritoneal Dialysis GI Medical History: Reports: Hx Irritable Bowel Skin Medical History: Reports Hx Eczema Psychiatric Medical History: Reports: Hx Anxiety, Hx Bipolar Disorder Past Surgical History: Reports: Hx Gynecologic Surgery - D&C, Hx Oral Surgery - Immunizations Immunizations up to date: Yes Hx Diphtheria, Pertussis, Tetanus Vaccination: Yes - <4 years Review of Systems - Review of Systems Constitutional: No symptoms reported EENT: No symptoms reported Cardiovascular: No symptoms reported Respiratory: No symptoms reported Gastrointestinal: No symptoms reported Genitourinary: No symptoms reported Female Genitourinary: See HPI Musculoskeletal: No symptoms reported Skin: No symptoms reported Hematologic/Lymphatic: No symptoms reported Neurological/Psychological: No symptoms reported Physical Exam - Vital signs Vitals: Temp Pulse Resp BP Pulse Ox 98.3 F 83 16 114/70 100 03/04/17 19:41 03/04/17 19:41 03/04/17 19:41 03/04/17 19:41 03/04/17 19:41 Interpretation: Normal - General General appearance: Appears well, Alert - HEENT Head: Normocephalic, Atraumatic Eyes: Normal Pupils: PERRL - Respiratory Respiratory status: No respiratory distress Chest status: Nontender Breath sounds: Normal Chest palpation: Normal - Cardiovascular Rhythm: Regular Heart sounds: Normal auscultation Murmur: No - Abdominal Inspection: Normal Distension: No distension Bowel sounds: Normal Tenderness: Nontender. No: Tender, Guarding Organomegaly: No organomegaly - Genitourinary External exam: Normal Speculum exam: Cervix closed, Other - thin film of mucous, no discharge, no other abnormality noted Vaginal bleeding: None Bimanuel exam: Normal - Back Back: Normal, Nontender - Extremities General upper extremity: Normal inspection, Nontender, Normal color, Normal ROM , Normal temperature General lower extremity: Normal inspection, Nontender, Normal color, Normal ROM , Normal temperature, Normal weight bearing. No: Blanche's sign - Neurological Neuro grossly intact: Yes Cognition: Normal Orientation: AAOx4 Benitez Coma Scale Eye Opening: Spontaneous [place] Coma Scale Verbal: Oriented [place] Coma Scale Motor: Obeys Commands Benitez Coma Scale Total: 15 Speech: Normal Motor strength normal: LUE, RUE, LLE, RLE Sensory: Normal - Psychological Associated symptoms: Normal affect, Normal mood - Skin Skin Temperature: Warm Skin Moisture: Dry Skin Color: Normal Course - Re-evaluation Re-evalutation: With thin film of mucus on vaginal exam, no lesions, lacerations, notable discharge, or abnormal finding. Unfortunately pelvic exam wet mount was not very accurate because too much saline was placed in the sample. Gonorrhea and Chlamydia are negative. On wet mount or exam. Patient on recent antibiotics, also complaining of fungal irritation over the nipples recently had thrush. No abdominal exam tenderness noted. No fever. Patient given a single dose of Diflucan, advised follow-up with [facility] for additional management, discussed return precautions, patient states understanding and agreement. - Vital Signs Vital signs: Temp Pulse Resp BP Pulse Ox 97.9 F 63 17 115/72 100 03/05/17 00:04 03/05/17 00:04 03/05/17 00:04 03/05/17 00:04 03/05/17 00:04 - Laboratory Laboratory results interpreted by me: 03/04/17 21:15 Urine Ascorbic Acid 40 H Discharge - Discharge Clinical Impression: Vaginal discomfort Condition: Stable Disposition: HOME, SELF-CARE Additional Instructions: You have been treated for suspected fungal irritation. Resume probiotics. Follow-up with [facility]. Return to emergency department for any concerning or worsening symptoms. Referrals: ZACH HINES MD [Primary Care Provider] - Follow up as needed
[2017-03-04 21:42] LABS: APPEARANCE,URINE CLEAR; BILIRUBIN,URINE NEGATIVE (NEGATIVE); GLUCOSE, URINE NEGATIVE (NEGATIVE); KETONES,URINE NEGATIVE (NEGATIVE); LEUKOCYTE ESTERASE,URINE NEGATIVE (NEGATIVE); NITRITE,URINE NEGATIVE (NEGATIVE); PROTEIN,URINE NEGATIVE (NEGATIVE); URINE SPECIFIC GRAVITY 1.019; UROBILINOGEN,URINE NEGATIVE mg/dL (<2.0)
[2017-03-04] MEDS ORDERED: FLUCONAZOLE 100 MG TABLET PO ONE (23:47)
[2017-03-05 00:02] LABS: CHLAM PCR NOT DETECTED (NOT DETECT)
[2017-03-05 00:10] VITALS: BP 115/72
== END 2017-03-05 00:11 | disposition home or self-care (01) ==
LOC: ER 19:31
DX: R10.2 Pelvic and perineal pain (principal); N89.8 Other specified noninflammatory disorders of vagina
CPT/HCPCS: 99283; 87210; 81025; 81001; 87491; 87591; J3490

== ENCOUNTER 2017-03-12 19:54 | Emergency (ER) | payer MEDICAID | END 2017-03-12 20:05 | disposition left against medical advice (07) | LOC: ER 19:54 | DX: Z53.21 Procedure and treatment not carried out due to patient leaving prior to being seen by health care provider (principal) ==

== ENCOUNTER → 2017-06-29 | Outpatient (CLI) | payer MEDICAID ==
[2017-06-29 11:02] LABS: ABSOLUTE MONOCYTES (AUTO) 0.3 10^3/uL (0.1-1.4); ABSOLUTE NEUT (AUTO) 2.9 10^3/uL (1.7-8.2); BASOPHILS % (AUTO) 0.5 % (0-2); HEMATOCRIT 37.1 % (36.0-47.0); HEMOGLOBIN 12.6 g/dL (12.0-15.5); HGB HCT DIFFERENCE 0.7; LYMPHOCYTES % (AUTO) 23.5 % (13-45); MEAN CORPUSCULAR HEMOGLOBIN 28.6 pg (27.0-33.4); MEAN CORPUSCULAR HGB CONC 34.1 g/dL (32.0-36.0); MEAN CORPUSCULAR VOLUME 84 fl (80-97); MONOCYTES % (AUTO) 7.5 % (3-13); RED BLOOD COUNT 4.42 10^6/uL (3.72-5.28); RED CELL DISTRIBUTION WIDTH 14.7 % (11.5-14.0); SEGMENTED NEUTROPHILS % (AUTO) 67.5 % (42-78); WHITE BLOOD COUNT 4.4 10^3/uL (4.0-10.5)
[2017-06-29 11:36] LABS: ALANINE AMINOTRANSFERASE 27 U/L (9-52); ALBUMIN 4.5 g/dL (3.5-5.0); ALKALINE PHOSPHATASE 102 U/L (38-126); ANION GAP 12 (5-19); ASPARTATE AMINO TRANSFERASE 21 U/L (14-36); BILIRUBIN,DIRECT 0.4 mg/dL (0.0-0.4); BILIRUBIN,TOTAL 0.9 mg/dL (0.2-1.3); BLOOD UREA NITROGEN 15 mg/dL (7-20); CALCIUM 9.9 mg/dL (8.4-10.2); CARBON DIOXIDE 27 mmol/L (22-30); CHLORIDE 105 mmol/L (98-107); CHOLESTEROL 161.16 mg/dL (0-200); CREATININE RESULT 0.76 mg/dL (0.52-1.25); Direct HDL 55 mg/dL (>40); GLUCOSE 82 mg/dL (75-110); POTASSIUM 4.9 mmol/L (3.6-5.0); SODIUM 143.7 mmol/L (137-145); TOTAL PROTEIN 7.3 g/dL (6.3-8.2); TRIGLYCERIDES 44 mg/dL (<150)
[2017-06-29 11:51] LABS: DIRECT LDL 93 mg/dL (<100)
[2017-06-29 12:00] LABS: THYROID STIMULATING HORMONE 1.59 uIU/mL (0.47-4.68)
== END ==
LOC: OD 09:45
PROVIDERS: ATTEND Nurse Practitioner Psychiatric/Mental Health
DX: F41.1 Generalized anxiety disorder (principal)
CPT/HCPCS: 36415; 80053; 80061; 84439; 84443; 85025; 86376

== ENCOUNTER 2018-02-01 03:43 | Emergency (ER) | payer MEDICAID ==
[2018-02-01 03:50] VITALS: BP 108/69
[2018-02-01] MEDS ORDERED: IBUPROFEN 600 MG TABLET PO ONE (04:11)
--- NOTE | 2018-02-01 04:24 | ER Document Report ---
HPI - HPI Pain Level: 5 Notes: Patient is a 23-year-old female with a history of chronic left leg issues with hyperpronation who presents to the ED complaining of left ankle and left foot pain status post injury prior to arrival. Patient states that she tripped over a toy and rolled her foot/ankle. Patient states that she has had pain in that area since then. The pain does not radiate. Patient states that she has been limping since then. Pain is described as a sharp pain. She has not taken any medicines for her symptoms. No other concerns or complaints at this time. Denies any headache, fever, head injury, neck pain, URI, sore throat, chest pain , palpitations, syncope, cough, shortness of breath, wheeze, dyspnea, abdominal pain, nausea/vomiting/diarrhea, urinary retention, dysuria, hematuria, numbness/ tingling, muscle paralysis/weakness, or rash. - ROS Systems Reviewed and Negative: Yes All other systems reviewed and negative - REPRODUCTIVE Reproductive: REPORTS: : Past Medical History - Social History Smoking Status: Unknown if Ever Smoked Family History: Reviewed & Not Pertinent, Arthritis, CAD, DM, Hypertension, Other - Long family history of anxiety. Pulmonary Medical History: Reports: Hx Asthma - childhood Renal/ Medical History: Reports: Hx Ovarian Cysts. Denies: Hx Peritoneal Dialysis GI Medical History: Reports: Hx Irritable Bowel Skin Medical History: Reports Hx Eczema Psychiatric Medical History: Reports: Hx Anxiety, Hx Bipolar Disorder Past Surgical History: Reports: Hx Section - 6 weeks ago, Hx Gynecologic Surgery - D&C, Hx Oral Surgery - Immunizations Immunizations up to date: Yes Hx Diphtheria, Pertussis, Tetanus Vaccination: Yes - <4 years Vertical Provider Document - CONSTITUTIONAL Agree With Documented VS: Yes Notes: PHYSICAL EXAMINATION: GENERAL: Well-appearing, well-nourished and in no acute distress. LUNGS: Breath sounds clear to auscultation bilaterally and equal. No wheezes rales or rhonchi. HEART: Regular rate and rhythm without murmurs, rubs, gallops. Musculoskeletal: Lt ankle: LROM to passive/active dorsiflexion. Strength 5+/5. N/V intact distal. + tenderness to the lateral malleolus and area of the ATFL. + mild bony tenderness to the dorsal lateral foot. Achilles intact. Extremities: No cyanosis, clubbing, or edema b/l. Peripheral pulses 2+. Capillary refill less than 3 seconds. NEUROLOGICAL: Normal speech, limping gait. Normal sensory, motor exams PSYCH: Normal mood, normal affect. SKIN: Warm, Dry, normal turgor, no rashes or lesions noted. - INFECTION CONTROL TRAVEL OUTSIDE OF THE [place] IN LAST 30 DAYS: No Course - Re-evaluation Re-evalutation: 02/01/18 04:48 Patient is an afebrile, well-hydrated, 23-year-old female who presents to the ED with left ankle and left foot pain, suspect sprain versus strain. Vitals are acceptable. PE is otherwise unremarkable for any neurovascular compromise, obvious tendon/ligament rupture, obvious fracture/dislocation, septic joint. X- rays were unremarkable for any acute pathology. Ankle stirrup splint provided today along with crutches. Motrin given p.o. today. Ice pack placed. Recommend conservative measures for symptoms. Recheck with your PCM in 3-5 days. Consider consult orthopedic/physical therapy. Return to the ED with any worsening/concerning symptoms otherwise as reviewed in discharge. Patient is in agreement. - Vital Signs Vital signs: Temp Pulse Resp BP Pulse Ox 98.3 F 99 18 108/69 100 02/01/18 03:45 02/01/18 03:45 02/01/18 03:45 02/01/18 03:45 02/01/18 03:45 Discharge - Discharge Clinical Impression: Left foot pain Left ankle pain Qualifiers: Chronicity: acute Qualified Code(s): M25.572 - Pain in left ankle and joints of left foot Condition: Stable Disposition: HOME, SELF-CARE Instructions: Ankle Stirrup Splint ([facility]), Use of Crutches ([facility]), Ice & Elevation ([facility]) Additional Instructions: Rest, Ice, Compression, Elevation Use crutches/splint as directed Tylenol/ibuprofen as needed Light stretches daily Strength exercises as able Moist heat and massage may help F/u with your PCP in 3-5 days for a recheck Consider consult(s) with Orthopedics/physical therapy for ongoing/worsening symptoms Return to the ED with any worsening symptoms and/or development of fever, headache, chest pain, palpitations, syncope, shortness of breath, trouble breathing, abdominal pain, n/v/d, muscle weakness/paralysis, numbness/tingling, swelling, redness, or other worsening symptoms that are concerning to you. Prescriptions: Naproxen 500 mg PO BID PRN #30 tablet PRN Reason: Referrals: [facility] [Provider Group] - Follow up as needed
--- NOTE | 2018-02-01 04:45 | RADIOLOGY REPORT (SQ) ---
EXAM DESCRIPTION: Left ankle, 3 views CLINICAL HISTORY: pain s/p injury COMPARISON: None. FINDINGS: 3 views of the left ankle. No acute fracture or dislocation. Normal osseous mineralization. Base of the fifth metatarsal is intact. Tibial plafond and talar dome have normal alignment. IMPRESSION: No acute fracture or dislocation.
--- NOTE | 2018-02-01 04:46 | RADIOLOGY REPORT (SQ) ---
EXAM DESCRIPTION: Left foot, 3 views CLINICAL HISTORY: pain s/p injury COMPARISON: None. FINDINGS: 3 views of the left foot. No acute fracture or dislocation. Normal osseous mineralization. Tarsals and metatarsals have appropriate alignment. IMPRESSION: No acute fracture or dislocation
== END 2018-02-01 05:00 | disposition home or self-care (01) ==
LOC: ER 03:43
DX: O99.89 Other specified diseases and conditions complicating pregnancy, childbirth and the puerperium (principal); M79.672 Pain in left foot; M25.572 Pain in left ankle and joints of left foot; X50.0XXA Overexertion from strenuous movement or load, initial encounter; Z3A.00 Weeks of gestation of pregnancy not specified
CPT/HCPCS: 99283; 73610; 73630; L1902; J3490

== ENCOUNTER 2018-04-01 19:47 | Emergency (ER) | payer MEDICAID ==
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
[2018-04-01] MEDS ORDERED: OXYCODONE-ACETAMINOPHEN 5-325 MG TABLET PO ONE (20:47)
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
[2018-04-01 22:34] VITALS: BP 125/70
== END 2018-04-01 22:33 | disposition home or self-care (01) ==
LOC: ER 19:47
DX: R68.84 Jaw pain (principal); Y04.8XXA Assault by other bodily force, initial encounter; J45.909 Unspecified asthma, uncomplicated
CPT/HCPCS: 70110; 99284

== ENCOUNTER 2018-06-21 07:02 | Emergency (ER) | payer MEDICAID ==
[2018-06-21] MEDS ORDERED: LIDOCAINE 1% INJ-PF (10 MG/ML) 30 ML SDV INJ ONE (07:31)
[2018-06-21] MEDS ORDERED: LIDOCAINE 2% VISCOUS SOLN 20 ML UDCUP PO ONE (07:31)
[2018-06-21] MEDS ORDERED: DIPH/PERTUSS(ACELL)/TETANUS VAC/PF 0.5 ML SYR (>=10YO) IM ONE (08:07)
--- NOTE | 2018-06-21 08:13 | ER Document Report ---
HPI - HPI Patient complains to provider of: cut foot Onset: Other - Last night at 930 Onset/Duration: Sudden Pain Level: 3 Context: 23-year-old female cut left MTP lateral joint skin with metal last night at 930. She came in today because she when she put her foot down to walk today it started to bleed again. 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 Tetanus is not current. Associated Symptoms: None Exacerbated by: Walking Relieved by: Denies Similar symptoms previously: No Recently seen / treated by doctor: No - ROS ROS below otherwise negative: Yes Systems Reviewed and Negative: Yes All other systems reviewed and negative Past Medical History - General Information source: Patient - Social History Smoking Status: Never Smoker Frequency of alcohol use: None Drug Abuse: None Family History: Reviewed & Not Pertinent, Arthritis, CAD, DM, Hypertension, Other - Long family history of anxiety. Patient has suicidal ideation: No Patient has homicidal ideation: No Pulmonary Medical History: Reports: Hx Asthma - childhood Renal/ Medical History: Reports: Hx Ovarian Cysts GI Medical History: Reports: Hx Irritable Bowel Skin Medical History: Reports Hx Eczema Psychiatric Medical History: Reports: Hx Anxiety, Hx Bipolar Disorder Past Surgical History: Reports: Hx Section - 6 weeks ago, Hx Gynecologic Surgery - D&C, Hx Oral Surgery - Immunizations Immunizations up to date: Yes Hx Diphtheria, Pertussis, Tetanus Vaccination: Yes - <4 years Vertical Provider Document - CONSTITUTIONAL Agree With Documented VS: Yes Exam Limitations: No Limitations - INFECTION CONTROL TRAVEL OUTSIDE OF THE [place] IN LAST 30 DAYS: No - MUSCULOSKELETAL/EXTREMETIES Musculoskeletal/Extremeties: MAEW, FROM, Tender - Flap cut medial left first MTP joint, superficial, not to the joint capsule - NEURO Motor/Sensory: No Motor Deficit, No Sensory Deficit - DERM Integumentary: Laceration Course - Vital Signs Vital signs: Temp Pulse Resp BP Pulse Ox 98.6 F 105 H 20 117/71 96 06/21/18 07:05 06/21/18 07:05 06/21/18 07:05 06/21/18 07:05 06/21/18 07:05 Procedures - Laceration/Wound Repair Left Foot Time completed: 08:08 Wound length (cm): 1.5 Wound's Depth, Shape: Flap Laceration pre-procedure: Sterile drapes applied, Other - surgiscrub Anesthetic type: 1% Lidocaine Volume Anesthetic (mLs): 4 Wound explored: Clean Irrigated w/ Saline (mLs): 100 Wound Debrided: Minimal - non viable flap edge excised Wound Repaired With: Sutures Suture Size/Type: 3:0, Prolene Number of Sutures: 3 Post-procedure NV exam normal: Yes Complications: No Discharge - Discharge Clinical Impression: left foot flap cut repair Condition: Good Disposition: HOME, SELF-CARE Instructions: Antibiotic Ointment Protection ([facility]), Laceration Care ([facility]), Soap Cleansing ([facility]), Tetanus Immunization Given ([facility]) Additional Instructions: sutures out in 10 days keep clean and dry do not wear shoe that will rub on it to er any concerns Forms: Return to Work
[2018-06-21 08:29] VITALS: BP 125/75
== END 2018-06-21 08:28 | disposition home or self-care (01) ==
LOC: ER 07:02
PROC: 0HQNXZZ Repair Left Foot Skin, External Approach (ICD-10-PCS; principal; 2018-06-21)
DX: S91.312A Laceration without foreign body, left foot, initial encounter (principal); X78.8XXA Intentional self-harm by other sharp object, initial encounter; Z23 Encounter for immunization
CPT/HCPCS: 99283; 90471; 90715; 12001; J3490

== ENCOUNTER 2019-03-28 15:36 | Emergency (ER) | payer SELFPAY ==
[2019-03-28 16:25] LABS: ABSOLUTE LYMPHOCYTES (AUTO) 1.3 10^3/uL (0.5-4.7); ABSOLUTE MONOCYTES (AUTO) 0.5 10^3/uL (0.1-1.4); ABSOLUTE NEUT (AUTO) 4.7 10^3/uL (1.7-8.2); BASOPHILS % (AUTO) 0.1 % (0-2); EOSINOPHILS % (AUTO) 0.1 % (0-6); HEMATOCRIT 39.7 % (36.0-47.0); HEMOGLOBIN 13.3 g/dL (12.0-15.5); LYMPHOCYTES % (AUTO) 20.5 % (13-45); MEAN CORPUSCULAR HEMOGLOBIN 28.4 pg (27.0-33.4); MEAN CORPUSCULAR HGB CONC 33.6 g/dL (32.0-36.0); MEAN CORPUSCULAR VOLUME 85 fl (80-97); MONOCYTES % (AUTO) 7.4 % (3-13); PLATELET COUNT 383 10^3/uL (150-450); RED BLOOD COUNT 4.68 10^6/uL (3.72-5.28); RED CELL DISTRIBUTION WIDTH 13.6 % (11.5-14.0); SEGMENTED NEUTROPHILS % (AUTO) 71.9 % (42-78); TOTAL CELLS COUNTED % (AUTO) 100 %; WHITE BLOOD COUNT 6.5 10^3/uL (4.0-10.5)
[2019-03-28] MEDS ORDERED: ONDANSETRON HCL INJ/PF 4 MG/2 ML SDV IV ONE (16:39)
[2019-03-28 16:47] LABS: ALANINE AMINOTRANSFERASE 18 U/L (9-52); ALBUMIN 4.3 g/dL (3.5-5.0); ALKALINE PHOSPHATASE 68 U/L (38-126); ANION GAP 11 (5-19); ASPARTATE AMINO TRANSFERASE 24 U/L (14-36); BILIRUBIN,DIRECT 0.2 mg/dL (0.0-0.4); BILIRUBIN,TOTAL 0.5 mg/dL (0.2-1.3); BLOOD UREA NITROGEN 12 mg/dL (7-20); CALCIUM 9.4 mg/dL (8.4-10.2); CARBON DIOXIDE 28 mmol/L (22-30); CHLORIDE 102 mmol/L (98-107); GLUCOSE 120 mg/dL (75-110); POTASSIUM 3.8 mmol/L (3.6-5.0); SODIUM 140.7 mmol/L (137-145); TOTAL PROTEIN 7.8 g/dL (6.3-8.2)
[2019-03-28 16:48] LABS: ACETAMINOPHEN < 10 ug/mL (10-30); ALCOHOL < 10 mg/dL (NONE DETECTED); SALICYLATE < 1.0 mg/dL (2.0-20.0)
[2019-03-28] MEDS ORDERED: NORMAL SALINE 1000 ML 1,000 ML IV ONE (17:17)
[2019-03-28 17:53] VITALS: BP 131/89
--- NOTE | 2019-03-28 18:02 | ER Document Report ---
ED Substance Abuse / Acc. OD - General Chief Complaint: Possible Overdose Stated Complaint: POSSIBLE SEIZURE Time Seen by Provider: 03/28/19 16:03 Notes: Pt is an otherwise healthy 24-year-old female presents to the emergency department via EMS after potential narcotic overdose. Per EMS they found to the patient unresponsive. [facility] fire department gave the patient 2 mg of IN Narcan due to unresponsiveness and pinpoint pupils. States after Narcan was administered patient then started to wake up. Patient was then with a GCS of 15. EMS states they did have to use BVM for respiratory drive for the patient for a short time prior to Narcan administration. Past medical history: anxiety Medications: Xanax, Neurontin, Tylenol with codeine, hydroxyzine TRAVEL OUTSIDE OF THE [place] IN LAST 30 DAYS: No - Related Data Allergies/Adverse Reactions: ethinyl estradiol [From Lutera (28)] Allergy (Verified 06/21/18 07:03) haloperidol [From Haldol] Allergy (Verified 06/21/18 07:03) haloperidol lactate [From Haldol] Allergy (Verified 06/21/18 07:03) levonorgestrel [From Lutera (28)] Allergy (Verified 06/21/18 07:03) lithium [[place]] Allergy (Verified 06/21/18 07:03) Past Medical History - General Information source: Patient, Emergency Med Personnel - Social History Smoking Status: Unknown if Ever Smoked Family History: Reviewed & Not Pertinent, Arthritis, CAD, DM, Hypertension, Other - Long family history of anxiety. Patient has suicidal ideation: No Patient has homicidal ideation: No Pulmonary Medical History: Reports: Hx Asthma - childhood Renal/ Medical History: Reports: Hx Ovarian Cysts. Denies: Hx Peritoneal Dial ysis GI Medical History: Reports: Hx Irritable Bowel Skin Medical History: Reports Hx Eczema Psychiatric Medical History: Reports: Hx Anxiety, Hx Bipolar Disorder Past Surgical History: Reports: Hx Section - 6 weeks ago, Hx Gynecologic Surgery - D&C, Hx Oral Surgery - Immunizations Immunizations up to date: Yes Hx Diphtheria, Pertussis, Tetanus Vaccination: Yes - <4 years Review of Systems - Review of Systems Constitutional: No symptoms reported EENT: No symptoms reported Cardiovascular: No symptoms reported Respiratory: No symptoms reported Gastrointestinal: See HPI Genitourinary: No symptoms reported Female Genitourinary: No symptoms reported Musculoskeletal: No symptoms reported Skin: No symptoms reported Hematologic/Lymphatic: No symptoms reported Neurological/Psychological: See HPI Physical Exam - Vital signs Vitals: Pulse Ox 98 03/28/19 15:58 - Notes Notes: GENERAL: Alert, interacts well. No acute distress. HEAD: Normocephalic, atraumatic. EYES: Pupils equal, round, and reactive to light. Extraocular movements intact. ENT: Oral mucosa moist, tongue midline. NECK: Full range of motion. Supple. Trachea midline. LUNGS: Clear to auscultation bilaterally, no wheezes, rales, or rhonchi. No respiratory distress. HEART: Regular rate and rhythm. No murmur ABDOMEN: Soft, non-tender. Non-distended. Bowel sounds present in all 4 quadrants. EXTREMITIES: Moves all 4 extremities spontaneously. No edema, normal radial and dorsalis pedis pulses bilaterally. No cyanosis. BACK: no cervical, thoracic, lumbar midline tenderness. No saddle anesthesia, normal distal neurovascular exam. NEUROLOGICAL: Alert and oriented x3. Normal speech. cranial nerves II through XII grossly intact. PSYCH: Normal affect, normal mood. SKIN: Warm, dry, normal turgor. No rashes or lesions noted. Course - Re-evaluation Re-evalutation: Patient intermittently starts crying when I asked her what medication she potentially took. Patient continues to state over and over again "just do not take my child." Patient will not tell me if she took any sort of medications. Is denying taking her Tylenol with codeine today. No obvious track potts noted to patient's bilateral upper extremities. Patient is denying injecting any medications. Nurse brings to my attention that the patient voiced to her that a friend gave her "a pill that must of been laced with something." Nursing staff brings to my attention that the patient wants to leave the emergency department. I discussed that I will print out discharge paperwork for the patient. Nurse then brings my attention that she was able to remove the patient's IV but then the pt immediately left the emergency department. I did not speak to the patient about discharge or any sort of follow-up. - Vital Signs Vital signs: Temp Pulse Resp BP Pulse Ox 98.0 F 11 L 131/89 H 100 03/28/19 17:49 03/28/19 17:49 03/28/19 17:49 03/28/19 17:49 - Laboratory Result Diagrams: 03/28/19 16:10 03/28/19 16:10 Laboratory results interpreted by me: 03/28/19 16:10 Glucose 120 H Salicylates < 1.0 L Acetaminophen < 10 L Discharge - Discharge Clinical Impression: Medication overdose Qualifiers: Encounter type: initial encounter Injury intent: undetermined intent Qualified Code(s): T50.904A - Poisoning by unspecified drugs, medicaments and biological substances, undetermined, initial encounter Condition: Stable Disposition: HOME, SELF-CARE Instructions: Narcotic Abuse ([facility])
--- NOTE | 2019-03-28 20:05 | EKG REPORT ---
SEVERITY:- ABNORMAL ECG - SINUS TACHYCARDIA LEFT AXIS DEVIATION BORDERLINE T ABNORMALITIES, ANT-LAT LEADS BORDERLINE PROLONGED QT INTERVAL : Confirmed by: Renuka Longo MD 28-Mar-2019 20:04:10
== END 2019-03-28 18:00 | disposition home or self-care (01) ==
LOC: ER 15:36
DX: T50.904A Poisoning by unspecified drugs, medicaments and biological substances, undetermined, initial encounter (principal); F41.9 Anxiety disorder, unspecified; Z79.899 Other long term (current) drug therapy; Z88.8 Allergy status to other drugs, medicaments and biological substances
CPT/HCPCS: 93005; 99284; 96361; 96374; 36415; 80307 ×3; 84703; 85025; 80053; 93010; J2405; J7030

== ENCOUNTER → 2020-01-05 | Outpatient (CLI) | payer BC ==
[2020-01-05 18:53] LABS: APPEARANCE,URINE CLEAR; BILIRUBIN,URINE NEGATIVE (NEGATIVE); COLOR,URINE YELLOW; GLUCOSE, URINE NEGATIVE (NEGATIVE); KETONES,URINE NEGATIVE (NEGATIVE); LEUKOCYTE ESTERASE,URINE NEGATIVE (NEGATIVE); NITRITE,URINE NEGATIVE (NEGATIVE); PROTEIN,URINE 30 mg/dL (NEGATIVE); URINE SPECIFIC GRAVITY 1.012; UROBILINOGEN,URINE NEGATIVE mg/dL (<2.0)
== END ==
LOC: LAB 18:44
PROVIDERS: ATTEND Nurse Practitioner Family
DX: R30.0 Dysuria (principal)
CPT/HCPCS: 81001; 87086

== ENCOUNTER → 2020-01-20 | Outpatient (CLI) | payer BC ==
[2020-01-20 16:02] LABS: ABSOLUTE EOSINOPHILS # (AUTO) 0.1 10^3/uL (0.0-0.6); ABSOLUTE LYMPHOCYTES (AUTO) 3.5 10^3/uL (0.5-4.7); ABSOLUTE MONOCYTES (AUTO) 0.8 10^3/uL (0.1-1.4); ABSOLUTE NEUT (AUTO) 6.3 10^3/uL (1.7-8.2); BASOPHILS % (AUTO) 0.2 % (0-2); EOSINOPHILS % (AUTO) 0.5 % (0-6); HEMATOCRIT 39.5 % (36.0-47.0); HEMOGLOBIN 13.9 g/dL (12.0-15.5); LYMPHOCYTES % (AUTO) 32.4 % (13-45); MEAN CORPUSCULAR HEMOGLOBIN 30.3 pg (27.0-33.4); MEAN CORPUSCULAR HGB CONC 35.2 g/dL (32.0-36.0); MEAN CORPUSCULAR VOLUME 86 fl (80-97); MONOCYTES % (AUTO) 7.4 % (3-13); PLATELET COUNT 374 10^3/uL (150-450); RED BLOOD COUNT 4.59 10^6/uL (3.72-5.28); RED CELL DISTRIBUTION WIDTH 14.1 % (11.5-14.0); SEGMENTED NEUTROPHILS % (AUTO) 59.5 % (42-78); TOTAL CELLS COUNTED % (AUTO) 100 %; WHITE BLOOD COUNT 10.7 10^3/uL (4.0-10.5)
[2020-01-20 16:17] LABS: ALKALINE PHOSPHATASE 44 U/L (38-126); ANION GAP 6 (5-19); ASPARTATE AMINO TRANSFERASE 16 U/L (14-36); BILIRUBIN,TOTAL 0.9 mg/dL (0.2-1.3); BLOOD UREA NITROGEN 14 mg/dL (7-20); CALCIUM 9.5 mg/dL (8.4-10.2); CARBON DIOXIDE 32 mmol/L (22-30); CHLORIDE 99 mmol/L (98-107); POTASSIUM 3.5 mmol/L (3.6-5.0); TOTAL PROTEIN 6.9 g/dL (6.3-8.2)
[2020-01-20 16:22] LABS: GLUCOSE 41 mg/dL (75-110)
== END ==
LOC: OD 14:52
PROVIDERS: ATTEND Family Medicine
DX: I95.9 Hypotension, unspecified (principal); L40.9 Psoriasis, unspecified; R53.82 Chronic fatigue, unspecified; Z13.1 Encounter for screening for diabetes mellitus; Z13.220 Encounter for screening for lipoid disorders; Z82.61 Family history of arthritis
CPT/HCPCS: 36415; 80053; 83036; 84443; 85025